=== PATIENT | male | born 2000 ===

== ENCOUNTER 2023-08-08 14:28 | Emergency (ER) | payer OTHER, BC ==
[2023-08-08] MEDS: Diphtheria,Pertussis(Acell),Tetanus Vaccine 0.5 ML Syringe IM ONE (16:49)
[2023-08-08] MEDS: Lidocaine 1% 5 ML VIAL INJECT STA (16:51)
[2023-08-08 17:19] VITALS: PULSE 78
== END 2023-08-08 17:18 | disposition home or self-care (01) ==
LOC: MW.ED 14:28
DX: S81.812A Laceration without foreign body, left lower leg, initial encounter (principal); Z75.8 Other problems related to medical facilities and other health care; Z23 Encounter for immunization; W27.8XXA Contact with other nonpowered hand tool, initial encounter
CPT/HCPCS: 12002; 90471; 90715; 99282-25; 99283; J3490